=== PATIENT | male | born 1985 | race Caucasian/White ===

== ENCOUNTER 2016-07-04 09:36 | Observation (INO) | payer OTHER ==
[~2016-07-04] VITALS: Ht 165.1 cm; Wt 81.0 kg
[2016-07-04] MEDS ORDERED: MORPHINE SULFATE 8 MG/ML INJ ONE ×2 (09:41→10:12)
[2016-07-04 09:42] VITALS: O2SAT 98
[2016-07-04] MEDS ORDERED: ONDANSETRON HCL 4 MG/2 ML VIAL ONE (09:42)
[2016-07-04 10:01] LABS: I-STAT POTASSIUM 4.6 MMOL/L (3.5-4.9)
[2016-07-04 10:02] LABS: BASOPHIL % 0.5 % (0.0-2.0); EOSINOPHIL # 0.1 TH/MM3 (0-0.4); EOSINOPHIL % 0.7 % (0.0-4.0); HEMATOCRIT 43.4 % (39.0-51.0); HEMO FLAGS DIFF FINAL; LYMPH % 19.4 % (9.0-44.0); LYMPHOCYTE # 1.6 TH/MM3 (1.0-4.8); MEAN CELL VOLUME 88.9 FL (80.0-100.0); MEAN CORPUSCULAR HEMOGLOBIN 30.4 PG (27.0-34.0); MEAN CORPUSCULAR HGB CONC 34.2 % (32.0-36.0); MONO % 4.7 % (0.0-8.0); NEUT % 74.7 % (16.0-70.0); PLATELET COUNT 109 TH/MM3 (150-450); RED BLOOD COUNT 4.88 MIL/MM3 (4.50-5.90); RED CELL DISTRIBUTION WIDTH 13.8 % (11.6-17.2); WHITE BLOOD COUNT 8.1 TH/MM3 (4.0-11.0)
[2016-07-04 10:05] VITALS: BP 125/68; PULSE 86; RESP 20; O2SAT 98
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
[2016-07-04 10:16] LABS: APTT (PATIENT) 19.4 SEC (24.3-30.1); PROTHROMBIN TIME - PATIENT 11.4 SEC (9.8-11.6)
[2016-07-04] MEDS ORDERED: IOHEXOL 350 MG/ML 10 ML VIAL (for RAD DIAG) IV ONE (10:16)
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
[2016-07-04] MEDS ORDERED: HYDROmorphone HCL PF 1 MG/ML VIAL IV PUSH ONE (10:30)
[2016-07-04] MEDS ORDERED: oxyCODONE/ACETAMINOPHEN 5 MG/325 MG TAB PO ONE (10:30)
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
[2016-07-04] MEDS ORDERED: MORPHINE SULFATE 4 MG/ML INJ IV PUSH PRN (11:30)
[2016-07-04] MEDS ORDERED: NALOXONE HCL 0.4 MG/ML AMP IV PRN ×2 (11:30→15:00)
[2016-07-04] MEDS ORDERED: MAGNESIUM HYDROXIDE SUSP 30 ML CUP PO PRN ×2 (11:30→15:00)
[2016-07-04] MEDS ORDERED: ONDANSETRON HCL 4 MG/2 ML VIAL IVP PRN ×2 (11:30→15:00)
[2016-07-04] MEDS ORDERED: ACETAMINOPHEN 325 MG TAB PO PRN (11:30)
[2016-07-04] MEDS ORDERED: SODIUM CHLORIDE 0.9% FLUSH 5 ML FLUSH FLUSH PRN (11:30)
[2016-07-04] MEDS ORDERED: ACETAMINOPHEN/HYDROcodone 325 MG/5 MG TAB PO PRN ×2 (11:30)
[2016-07-04] MEDS ORDERED: SODIUM CHLOR 0.9% 250 ML INJ 250 ML IV ONE (12:00)
[2016-07-04] MEDS ORDERED: ONDANSETRON HCL 4 MG/2 ML VIAL IV PUSH ONE (12:00)
[2016-07-04] MEDS ORDERED: SODIUM CHLOR 0.9% 1000 ML INJ 1,000 ML IV SCH (12:00)
[2016-07-04] MEDS ORDERED: PROPOFOL 200 MG/20 ML AMP IV ONE (12:00)
[2016-07-04] MEDS ORDERED: GENTAMICIN SULFATE 80 MG/2 ML VIAL ONE (13:00)
[2016-07-04] MEDS ORDERED: BUPIVACAINE/EPINEPHRINE 0.5% 50 ML VIAL ONE (13:00)
[2016-07-04] MEDS ORDERED: CRUTMIS25 (13:11)
[2016-07-04] MEDS ORDERED: ceFAZolin 2 GM PREMIX 50 ML ONE (13:46)
[2016-07-04] MEDS ORDERED: VANCOMYCIN HCL 1000 MG VIAL ONE (13:46)
[2016-07-04] MEDS ORDERED: ceFAZolin INJ 1,000 MG VIAL IV ONE (13:50)
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
[2016-07-04] MEDS ORDERED: Post-op Orders (for Pharmacy) MISC XX ONE (15:00)
[2016-07-04] MEDS ORDERED: SODIUM CHLORIDE 0.9% FLUSH 5 ML FLUSH IVF PRN (15:00)
[2016-07-04] MEDS ORDERED: ACETAMINOPHEN/HYDROcodone 325 MG/10 MG TAB PO PRN (15:00)
[2016-07-04] MEDS ORDERED: MISCELLANEOUS PHARMACY INFORMATION XX ONE (15:00)
[2016-07-04] MEDS ORDERED: diphenhydrAMINE HCL 25 MG CAP PO PRN (15:00)
[2016-07-04] MEDS ORDERED: HYDR-3366 PO (15:00)
[2016-07-04] MEDS ORDERED: MISCELLANEOUS NURSING INFORMATION XX PRN (15:00)
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
--- NOTE | 2016-07-04 15:05 | PD.OP ---
cc: Myron Montana MD Operative Report Date of Surgery: Jul 04, 2016 Preoperative Diagnosis: Left ankle bimalleolar fracture, displaced Postoperative Diagnosis: Same Procedure: Left ankle open reduction and internal fixation of bimalleolar fracture Anesthesia: Gen. Surgeon: Myron Montana B2B Sales Executive(s): PERRI Stone The surgical procedure was assisted by my Advanced Registered Nurse Practitioner. My STREET AND BUILDING DECORATOR presence was necessary throughout this case for the manipulation and positioning of the surgical extremity. My STREET AND BUILDING DECORATOR was assisting me throughout the duration of this procedure. The skill set of an Advance Registered Nurse Practitioner was medically necessary to complete this procedure. During the surgical case, the surgical services manager was working at the back table and the Advance Registered Nurse Practitioner was directly assisting me. Operation and Findings: Tourniquet time: 0 minutes at 250 mmHg of pressure Estimated blood loss: 20 cc The patient received intravenous vancomycin and Ancef. After the appropriate anesthesia was administered, the patient's leg was prepped and draped in the usual sterile fashion. We made a standard incision over the lateral aspect of the ankle. We then dissected through the deep fascia down to the fracture site. Note that the superficial peroneal nerve was identified and protected during the entire case. The edges of the fracture were identified. Hematoma was evacuated and the fracture was irrigated. The fracture was anatomically reduced with a reduction clamp, verified both visually and via fluoroscopy. There was some local comminution, with some free fragments. These fragments were realigned anatomically as we anatomically reduced the fracture. We then applied a pre-contoured Synthes lateral malleolus plate over the fracture. We initially secured the plate using a non-locking screw in the oblong screw hole. This gave nice compression of the plate to the bone. We then secured the plate proximally with a nonlocking screw which pulled the plate very nicely down proximally. We then secured the fracture with multiple distal and proximal locking screws. The medial malleolus was still displaced. We made incision medially. This was a large fracture fragment identified. Hematoma was evacuated. The fracture was anatomically reduced. We secured this with 2 individual 4.0 long partially- threaded cannulated stainless steel Synthes screws. Both of these screws had excellent purchase. The fixation was completed over 2 guidewires. We took final fluoroscopic imaging of the ankle, including an AP, lateral, and mortise view. The fracture and the mortise were anatomic. There appeared to be no instability of the syndesmosis. We found no intra-articular penetration of the screws. The patient had full range of motion of the ankle with no crepitus. No instability was noted. We irrigated the incision thoroughly. We then closed the deep fascia as much as possible with 2-0 Vicryl. Skin was closed with 2-0 Vicryl followed by 3-0 nylon. The leg was dressed and a splint was applied. The postoperative plan is for nonweightbearing to the extremity. Myron Montana MD Jul 04, 2016 15:05
[2016-07-04] MEDS: DEXT 5%-NACL 0.45% 1000 ML INJ 1,000 ML IV SCH (15:35)
[2016-07-04] MEDS ORDERED: *MEPERIDINE 25 MG INJ VIAL PERIprocedural Use ONLY ONE (15:38)
[2016-07-04] MEDS ORDERED: fentaNYL CITRATE 250 MCG/5 ML AMP ONE (15:44)
[2016-07-04] MEDS ORDERED: DO NOT ADM ANY ANTICOAGULANT DRUGS XX PRN (15:45)
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
[2016-07-04] MEDS ORDERED: *morphine SULFATE 8 MG/ML PERIprocedure ONLY ONE (16:44)
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
[2016-07-04] MEDS ORDERED: *HYDROmorphone PF 1 MG VIAL PERIprocedural Use ONLY ONE (17:06)
[2016-07-04 19:00] VITALS: BP 119/65; PULSE 88; RESP 19; TEMP 96.8; O2SAT 99
[2016-07-04] MEDS: MORPHINE SULFATE 4 MG/ML INJ IV PUSH PRN (19:04)
[2016-07-04] MEDS ORDERED: SODIUM CHLORIDE 0.9% FLUSH 5 ML FLUSH IVF SCH (21:00)
[2016-07-04] MEDS ORDERED: SODIUM CHLORIDE 0.9% FLUSH 5 ML FLUSH FLUSH SCH (21:00)
[2016-07-04] MEDS: ACETAMINOPHEN/HYDROcodone 325 MG/10 MG TAB PO PRN (21:41)
[2016-07-04] MEDS: DOCUSATE SODIUM 50 MG/SENNA 8.6 MG TAB PO SCH (21:47)
[2016-07-04 23:40] VITALS: BP 108/60; PULSE 89; RESP 16; TEMP 98.2; O2SAT 95
[2016-07-05] MEDS: MORPHINE SULFATE 4 MG/ML INJ IV PUSH PRN ×2 (00:02→04:35)
[2016-07-05] MEDS: DEXT 5%-NACL 0.45% 1000 ML INJ 1,000 ML IV SCH (01:00)
[2016-07-05 04:30] VITALS: BP 106/56; PULSE 77; RESP 16; TEMP 98.8; O2SAT 96
[2016-07-05] MEDS: ACETAMINOPHEN/HYDROcodone 325 MG/10 MG TAB PO PRN (07:36)
[2016-07-05 08:00] VITALS: BP 120/62; PULSE 86; RESP 20; TEMP 99.1; O2SAT 100
[2016-07-05] MEDS: DOCUSATE SODIUM 50 MG/SENNA 8.6 MG TAB PO SCH (08:41)
[2016-07-05 08:46] VITALS: RESP 18
[2016-07-05] MEDS ORDERED: MULTIVITAMINS/MINERALS THERAPEUTIC TAB PO SCH (09:00)
--- NOTE | 2016-07-05 12:28 | PD.ORT.PN ---
Subjective Post Op Day #: 1 Subjective Remarks The patient is resting in bed with girlfriend at bedside. Patient is in no distress. Moderate pain to the left ankle. Objective Vitals Vital Signs Date Time Temp Pulse Resp B/P Pulse Ox O2 Delivery O2 Flow Rate FiO2 07/05/16 08:46 18 07/05/16 08:00 99.1 86 20 120/62 100 07/05/16 07:20 Room Air 07/05/16 04:30 98.8 77 16 106/56 96 07/04/16 23:40 98.2 89 16 108/60 95 07/04/16 19:00 96.8 88 19 119/65 99 07/04/16 17:30 68 13 114/66 98 Nasal Cannula 2 07/04/16 17:15 71 12 120/66 98 Nasal Cannula 2 07/04/16 17:00 84 12 110/70 98 Room Air 07/04/16 16:45 82 15 123/68 98 Room Air 07/04/16 16:30 86 15 125/83 96 Room Air 07/04/16 16:15 78 13 114/69 97 Room Air 07/04/16 16:00 82 12 112/69 97 Nasal Cannula 2 07/04/16 15:45 102 12 122/71 97 Nasal Cannula 2 07/04/16 15:35 98.4 101 12 127/78 95 Nasal Cannula 2 I/O 07/04/16 07/04/16 07/04/16 07/05/16 07/05/16 07/05/16 07:00 15:00 23:00 07:00 15:00 23:00 Intake Total 500 ml 240 ml Output Total 50 ml Balance 450 ml 240 ml Intake Oral 240 ml Other 500 ml Output Estimated Blood Loss 50 ml # Voids 6 # Bowel Movements 0 Result Diagram: 07/04/16 0904 Procedures Left ankle ORIF Objective Remarks The patient's splint and dressing is C/D/I. Patient moves his toes and has good sensation to light touch about all toes. BCR X 5. Patient has crutches that were ordered. Mild swelling to toes Assessment & Plan Ortho Post Op Day #: 1 Problem List: Assessment and Plan POD #1: left ankle ORIF of bimaleolar fractures 1. NWB LLE 2. Maintain splint until f/u in the office with Dr Montana in 1-2 weeks. 3. Ice to the left ankle PRN 4. Stable for discharge home per ortho once medically cleared. Mateo Levy Jul 05, 2016 12:27
[2016-07-05] MEDS ORDERED: PERC5TAB12 PO (12:30)
[2016-07-05] MEDS ORDERED: PERC10TA27 PO (12:40)
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
== END 2016-07-05 14:47 | disposition left against medical advice (07) ==
LOC: NEPI 09:36 → NEDA 09:51 → EDBD 09:51 → UNDOADMIN 09:51 → NEDA 10:12 → INTOOBSV 16:40 → N06A 18:00 → NEDA 18:00 → UNDODISIN 07-05 14:47
PROVIDERS: ADMIT Family Medicine; ATTEND Family Medicine
DX: S82.842A Displaced bimalleolar fracture of left lower leg, initial encounter for closed fracture (principal); S60.512A Abrasion of left hand, initial encounter; V47.0XXA Car driver injured in collision with fixed or stationary object in nontraffic accident, initial encounter; M54.5 Low back pain; M25.572 Pain in left ankle and joints of left foot; G89.29 Other chronic pain; M79.662 Pain in left lower leg; F17.210 Nicotine dependence, cigarettes, uncomplicated
CPT/HCPCS: 01480; 27814; 70450; 71010; 71260; 72125; 72170; 73600; 73610; 74177; 76000; 82435; 82565; 82947; 84132; 84295; 84520; 85025; 85610; 85730; 86850; 86900; 86901; 94150; 96374; 96375; 97161; 99291; C1713; E0113; G0378; J0690; J1170; J1580; J2175; J2270; J2405; J3010; J3370; J7030; J7050; L0150; Q9967; G0390

== ENCOUNTER 2016-10-18 23:47 | Emergency (ER) | payer OTHER ==
[~2016-10-18] VITALS: Ht 165.1 cm; Wt 80.0 kg
[2016-10-18 23:47] VITALS: BP 133/88; PULSE 90; RESP 18; TEMP 97.9; O2SAT 99
[~2016-10-18 23:47] MED LIST: CRUTMIS25; PERC10TA27 PO
--- NOTE | 2016-10-19 00:12 | PD ---
HPI Chief Complaint: Parada act Time Seen by Provider: 00:00 Travel History International Travel<30 days: No Contact w/Intl Traveler<30days: No Traveled to known affect area: No History of Present Illness HPI This patient presents under police Parada act. According to the Parada act, this patient sent text messages today suggesting he was feeling suicidal. The patient denies it and says he feels fine. He is not very cooperative or helpful or forthcoming with history. He denies physical complaints or medical history. He denies alcohol or drug use. Symptoms severity is mild to moderate. No alleviating factors. Duration one day PFSH Past Medical History Arthritis: Yes (back) Asthma: Yes (as a child) Autoimmune Disease: No Anxiety: No Depression: No Cancer: No Cardiovascular Problems: No COPD: No Endocrine: No GERD: No Genitourinary: Yes Hiatal Hernia: No Immune Disorder: No Kidney Stones: Yes Musculoskeletal: Yes Neurologic: No Psychiatric: No Respiratory: Yes Renal Failure: No Sleep Apnea: No Ulcer: No Past Surgical History Abdominal Surgery: No Cardiac Surgery: No Ear Surgery: No Endocrine Surgery: No Eye Surgery: No Genitourinary Surgery: No Gynecologic Surgery: No Oral Surgery: No Thoracic Surgery: No Social History Alcohol Use: No Tobacco Use: Yes Substance Use: No Allergies-Medications (Allergen,Severity, Reaction): Coded Allergies: Penicillin (Verified Allergy, Unknown, 07/04/16) Reported Meds & Prescriptions Reported Meds & Active Scripts Active Percocet (Oxycodone-Acetaminophen) 10-325 mg Tab 1-2 Tab PO Q4-6H PRN 7 Days Crutch/Aluminum/Adult (Device) 1 Mis Mis 1 Ea .ROUTE DIRECTED Review of Systems General / Constitutional: No: Fever Eyes: No: Visual changes HENT: No: Headaches Cardiovascular: No: Chest Pain or Discomfort Respiratory: No: Shortness of Breath Gastrointestinal: No: Abdominal Pain Genitourinary: No: Dysuria Musculoskeletal: No: Pain Skin: No Rash Neurologic: No: Weakness Psychiatric: Positive: Depression, Suicidal Ideations Endocrine: No: Polydipsia Hematologic/Lymphatic: No: Easy Bruising Physical Exam Narrative GENERAL: Well-nourished, well-developed patient in no apparent distress. SKIN: Focused skin assessment reveals no rash and nodules. Skin is Warm and dry. HEAD: Atraumatic. Normocephalic. EYES: Pupils equal and round. No scleral icterus. No injection or drainage. ENT: No nasal bleeding or discharge. Mucous membranes pink and moist. NECK: Trachea midline. No JVD. CARDIOVASCULAR: Regular rate and rhythm. No murmur appreciated. RESPIRATORY: No accessory muscle use. Clear to auscultation. Breath sounds equal bilaterally. GASTROINTESTINAL: Abdomen soft, non-tender, nondistended. Hepatic and splenic margins not palpable. MUSCULOSKELETAL: No obvious deformities. No clubbing. No cyanosis. No edema. NEUROLOGICAL: Awake and alert. No obvious cranial nerve deficits. Motor grossly within normal limits. Normal speech. PSYCHIATRIC: Aggravated mood and affect; insight and judgment reduced. Data Data Orders Complete Blood Count With Diff (10/19/16 00:09) Basic Metabolic Panel (Bmp) (10/19/16 00:09) Psych Screen (10/19/16 00:09) Drug Screen, Random Urine (10/19/16 00:09) Alcohol (Ethanol) (10/19/16 00:09) MDM Medical Decision Making Medical Screen Exam Complete: Yes Emergency Medical Condition: Yes Medical Record Reviewed: Yes Differential Diagnosis Suicidal ideation, depression, substance induced mood disorder Narrative Course I have reviewed the patient's electronic medical record. I ordered psychiatric evaluation as he is here under the Parada act I ordered a Medical clearance workup to include labs and a urine tox screen Diagnosis Primary Impression: Suicidal ideation Stas Powell MD Oct 19, 2016 00:12
[2016-10-19 00:36] LABS: AUTOMATED NEUTROPHIL # 7.2 TH/MM3 (1.8-7.7); BASOPHIL % 0.2 % (0.0-2.0); EOSINOPHIL % 0.4 % (0.0-4.0); HEMATOCRIT 41.8 % (39.0-51.0); HEMO FLAGS DIFF FINAL; LYMPH % 16.3 % (9.0-44.0); LYMPHOCYTE # 1.5 TH/MM3 (1.0-4.8); MEAN CELL VOLUME 86.5 FL (80.0-100.0); MEAN CORPUSCULAR HEMOGLOBIN 29.9 PG (27.0-34.0); MEAN CORPUSCULAR HGB CONC 34.5 % (32.0-36.0); MONO % 4.8 % (0.0-8.0); NEUT % 78.3 % (16.0-70.0); PLATELET COUNT 135 TH/MM3 (150-450); RED BLOOD COUNT 4.83 MIL/MM3 (4.50-5.90); RED CELL DISTRIBUTION WIDTH 13.7 % (11.6-17.2); WHITE BLOOD COUNT 9.1 TH/MM3 (4.0-11.0)
[2016-10-19 00:43] LABS: BICARBONATE 24.5 MEQ/L (21.0-32.0); POTASSIUM 3.9 MEQ/L (3.5-5.1)
[2016-10-19] MEDS ORDERED: IBUPROFEN 600 MG TAB PO ONE (00:45)
[2016-10-19 02:14] LABS: AMPHETAMINE, URINE NEG (NEG); BARBITURATES, URINE NEG (NEG); COCAINE, URINE NEG (NEG)
[2016-10-19 02:56] VITALS: BP 103/71; PULSE 95; RESP 18; O2SAT 97
[2016-10-19 06:17] VITALS: BP 118/59; PULSE 55; RESP 18; O2SAT 98
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
== END 2016-10-19 12:23 | disposition home or self-care (01) ==
LOC: NEPD 23:47 → NEPJ 10-19 12:23
DX: F43.25 Adjustment disorder with mixed disturbance of emotions and conduct (principal); M19.90 Unspecified osteoarthritis, unspecified site; J45.909 Unspecified asthma, uncomplicated; Z79.899 Other long term (current) drug therapy; Z88.0 Allergy status to penicillin; Z87.891 Personal history of nicotine dependence
CPT/HCPCS: 80048; 80307; 85025; 99285